=== PATIENT | female | born 1980 | race Caucasian/White ===

== ENCOUNTER → 2018-12-22 | Outpatient (CLI) | payer MEDICARE, MEDICAID ==
[~2018-12-22] MED LIST: ALBUTEROL2.5 MG/31 INH; CLONAZEPAM 0.50.5 M1 PO; DEPAKOTE ER500 MG PO; DEPAKOTE500 MG PO; DIFLUCAN150 MG PO; EFFEXOR XR75 MG PO; ESTRACE1 MG PO; ESTRACE2 MG PO; FLEXERIL PO; HYDROCHLOROTH12.5 M1 PO; HYDROCHLOROTHIA25 M2 PO; HYDROCODONE-AP1 EAC6 PO; IBUPROFEN 800800 M1 PO; KLOR-CON 1010 MEQ PO; MACROBID 100 M100 M1 PO; NORVASC10 MG PO; PHENERGAN 25 MG25 MG PO; PROCARDIA XL90 MG PO; PROCARDIA10 MG PO; PYRIDIUM200 MG PO; VICODIN 5-5001 EACH PO; WELLBUTRIN XL300 M1 PO; WELLBUTRIN XL300 MG PO; ZANTAC 150MG T150 MG PO; ZOCOR20 MG PO; [UNRECOGNIZED DRUG - CODE] PO
== END ==
LOC: M.LAB 05:36
DX: E87.6 Hypokalemia (principal)